=== PATIENT | male | born 1960 | race Caucasian/White ===

== ENCOUNTER 2017-09-10 07:03 | Emergency (ER) | payer BC ==
[2017-09-10] MEDS ORDERED: Ondansetron HCl/PF 4 MG/2 ML Vial ONE (07:14)
[2017-09-10] MEDS ORDERED: Promethazine HCl 25 MG/ML VIAL ONE (07:26)
[2017-09-10 07:33] LABS: #Lymphocytes 1.1 thou/uL (1.20-3.40); #Monocytes 0.3 thou/uL (0.11-0.59); %Basophils 0.4 % (0.0-1.0); %Eosinophils 0.1 % (0.0-10.0); %Lymphocytes 10.2 % (21.0-51.0); %Monocytes 2.9 % (0.0-10.0); Hematocrit 43.6 % (42.0-52.0); Mean Platelet Volume 6.9 fL (7.4-10.4); White Blood Cell (WBC) Count 10.4 thou/uL (4.8-10.8)
[2017-09-10] MEDS ORDERED: Ketorolac Tromethamine 30 MG/ML VIAL ONE (07:39)
[2017-09-10 07:46] LABS: ALT (SGPT) 35 U/L (8-55); AST (SGOT) 30 U/L (5-34); Alkaline Phosphatase 94 U/L (40-150); Anion Gap 16 mmol/L (10-20); BUN (Urea Nitrogen) 16 mg/dL (8.4-25.7); Bilirubin, Total 1.3 mg/dL (0.2-1.2); Calc. Creatinine Clearance 0 mL/min (70-130); Calcium 9.5 mg/dL (7.8-10.44); Carbon Dioxide 24 mmol/L (22-29); Chloride 103 mmol/L (98-107); Estimated GFR-MDRD 46; Globulin 3.2 g/dL (2.4-3.5); Lipase 14 U/L (8-78); Protein, Total 7.4 g/dL (6.0-8.3)
[2017-09-10 08:34] LABS: Bilirubin Negative (Negative); Blood, Urine Trace (Negative); Glucose, Urine (Dipstick) 100 mg/dL (Negative); Ketone, Urine Trace mg/dL (Negative); Nitrite Negative (Negative); Protein, Urine (Dipstick) Negative (Neg-Trace); Urobilinogen 0.2 mg/dL (0.2-1.0)
[2017-09-10 08:42] LABS: Bacteria/HPF None Seen HPF (None Seen); Squamous Epithelial None Seen HPF (0-3); WBC/HPF 0-3 HPF (0-3)
[2017-09-10] MEDS ORDERED: Iopamidol 200 41% 50 ML VIAL FS ONE (09:00)
[2017-09-10] MEDS ORDERED: metroNIDAZOLE 500 MG/100 ML BAG ONE (09:05)
--- NOTE | 2017-09-10 11:01 | CT ---
CT ABDOMEN AND PELVIS WITH IV CONTRAST: Date: 09/10/17 HISTORY: Abdominal pain, fever. FINDINGS: No comparison. The lung bases are clear. The right renal collecting system and ureter is slightly distended to the l evel of a 0.4 cm calculus within the distal right ureter. The left renal collecting system, ureter, a nd urinary bladder are decompressed. Two stones are present within nondilated calices of the left kid teresa, measuring up to 0.5 cm greatest diameter. At least six stones are present within calices of the right kidney. There is subtle stranding in the fat immediately adjacent to the right kidney. Low dens ity lesions within the liver and kidneys are favored to represent small cysts. Nonspecific lymph node s are scattered about the retroperitoneum. There are degenerative changes of the lumbar spine. No haven dence of bowel obstruction. IMPRESSION: Partial obstruction at a 4 mm distal right ureteral calculus. Additional nonobstructing bilateral harley al calculi. POS: [facility]
[2017-09-10] MEDS ORDERED: Morphine 4 MG/ML Carpuject ONE (11:18)
== END 2017-09-10 12:15 | disposition home or self-care (01) ==
LOC: SCSER 07:03
DX: E86.0 Dehydration (principal); N20.0 Calculus of kidney; E11.9 Type 2 diabetes mellitus without complications; E03.9 Hypothyroidism, unspecified; I10 Essential (primary) hypertension; Z79.899 Other long term (current) drug therapy
CPT/HCPCS: 74177; 80053; 81003; 81015; 83690; 85025; 96361; 96365; 96367; 96375; J1885; J2270; J2405; J2550

== ENCOUNTER 2017-09-13 12:57 | Outpatient (CLI) | payer BC ==
[2017-09-13 14:05] LABS: Hematocrit 43.5 % (42.0-52.0); Mean Platelet Volume 7.2 fL (7.4-10.4); Red Blood Cell (RBC) Count 4.66 mill/uL (4.70-6.10); White Blood Cell (WBC) Count 9.2 thou/uL (4.8-10.8)
[2017-09-13 14:14] LABS: PTT 37.6 SEC (22.9-36.1)
[2017-09-13 14:29] LABS: Bilirubin Negative (Negative); Blood, Urine Trace (Negative); Glucose, Urine (Dipstick) Negative (Negative); Ketone, Urine Trace mg/dL (Negative); Nitrite Negative (Negative); Protein, Urine (Dipstick) Negative (Neg-Trace); Urobilinogen 0.2 mg/dL (0.2-1.0)
[2017-09-13 14:31] LABS: Bacteria/HPF None Seen HPF (None Seen); Hyaline Casts/LPF 0-3 HYALINE CAST LPF (0-3 Hyaline); RBC/HPF 0-3 HPF (0-3); Squamous Epithelial None Seen HPF (0-3); WBC/HPF 0-3 HPF (0-3)
[2017-09-13 14:32] LABS: Anion Gap 10 mmol/L (10-20); BUN (Urea Nitrogen) 18 mg/dL (8.4-25.7); Calc. Creatinine Clearance 0 mL/min (70-130); Calcium 9.6 mg/dL (7.8-10.44); Carbon Dioxide 28 mmol/L (22-29); Chloride 102 mmol/L (98-107); Estimated GFR-MDRD 36
== END 2017-09-13 12:58 | disposition home or self-care (01) ==
LOC: LABBT 12:57
PROVIDERS: ATTEND Urology
DX: Z01.818 Encounter for other preprocedural examination (principal); N20.2 Calculus of kidney with calculus of ureter
CPT/HCPCS: 80048; 81001; 85027; 85610; 85730; 87086; 93005; 93010

== ENCOUNTER 2017-09-14 10:33 | Day surgery (SDC) | payer BC ==
[2017-09-13 13:17] VITALS: BMI 39.1
[2017-09-14] MEDS ORDERED: Fentanyl 250 MCG/5 ML VIAL ONE (12:12)
[2017-09-14] MEDS ORDERED: Midazolam HCl 2 mg/2 ml Vial ONE ×2 (12:12→12:19)
[2017-09-14] MEDS ORDERED: B & O ONE (12:21)
[2017-09-14] MEDS ORDERED: Iothalamate Meglumine 60% 50 ML VIAL FS ONE (12:21)
[2017-09-14] MEDS ORDERED: Levofloxacin 500 mg/D5W 100 ml Premix Bag ONE (12:28)
[2017-09-14] MEDS ORDERED: Ondansetron HCl/PF 4 MG/2 ML Vial ONE (14:56)
[2017-09-14] MEDS ORDERED: Glycopyrrolate 0.2 MG/ML 5 ML SYRINGE ONE (14:56)
[2017-09-14] MEDS ORDERED: Lidocaine 1% PF 5 ML VIAL ONE (14:56)
[2017-09-14] MEDS ORDERED: Propofol 200 MG/20 ML VIAL ONE (14:56)
[2017-09-14] MEDS ORDERED: ePHEDrine/0.9% NaCl/PF SYRINGE 50 mg/10 ml ONE (14:56)
[2017-09-14] MEDS ORDERED: PHENYLEPHRINE-NS 100 MCG/ML 10 ML SYRINGE ONE (14:56)
--- NOTE | 2017-09-14 17:36 | OP ---
DATE OF SURGERY: 09/14/2017 SURGEON: Russel Carr M.D. SERVICE: Urology. POSTOPERATIVE DIAGNOSES: Right ureteral and renal stone. POSTOPERATIVE DIAGNOSES: Right ureteral and renal stone. PROCEDURE PERFORMED: Right ureteroscopy, laser lithotripsy, basket extraction of stone, and placemen t of a 6 x 30 double-J stent. INDICATIONS FOR PROCEDURE: Mr. Redman is a 57-year-old white male with diabetes who initially presen major to me with right flank pain and a CT demonstrating a 4 mm distal right ureteral stone. Unfortuna tely, the patient's creatinine was mildly elevated, rechecked there was a significant worsening of hi s creatinine indicating that he was progressing towards renal failure. I recommended against medical expulsive therapy and going for immediate intervention. Urinalysis was negative for a urinary infec tion. He has had no fevers, we elected to proceed forward with the ureteroscopy with all risks and b enefits discussed and he agreed to proceed forward. DESCRIPTION OF PROCEDURE: After identification of arm band and verification of consent, the patient was brought back to the operating room where he underwent general anesthesia with LMA. He was then p laced in dorsal lithotomy position and prepped and draped in usual sterile fashion. After appropriat e timeout, a lubricated 22-Romanian rigid cystoscope was introduced per urethra into the bladder and at tention turned to the right orifice. Attempts to cannulate the ureteral orifice were unsuccessful du e to the stone being in close proximity. Therefore, the cystoscope was withdrawn and a semirigid ure teroscope brought in and directly intubated into the distal ureter. Using the ureteroscope as guidan ce, the sensor wire was able to navigate past the stone into the renal pelvis. The ureteroscope was then withdrawn to allow for affixing the sensor wire to the drapes of the safety wire. The ureterosc ope was then readvanced through the urethra back into the bladder and into ureter adjacent to the sen sor wire to the level of the stone. In attempts to pass a narrow segment of the ureter, a small muco petey flap was raised with the ureteroscope. The ureteroscope was withdrawn and positioned in the jayson ect position within the ureter and back approximately until the stone was seen. The 200 micron laser fiber was then used to fragment the stone into 2 pieces and the Zero Tip 1.9-Romanian nitinol basket u sed to grasp the fragments and bring it out for stone analysis. The ureteroscope was then put back i nto the urethra into the bladder underneath the ureter, passed mucosal flap and into the mid ureter. An Amplatz Super Stiff wire was then advanced through the ureteroscope to the level of the renal pel vis. The ureteroscope was then withdrawn and an 11/13 x 42 cm ureteral access sheath was advanced ov er the Super Stiff wire to the level of the proximal ureter. The inner cannula and the Super Stiff w suly were removed leaving the outer sheath and the sensor wire in place as a safety wire. A flexible digital ureteroscope was then passed up the ureteral access sheath into the proximal ureter and into the renal pelvis. There was a significant amount of debris and old blood within the renal pelvis whi ch was irrigated out with gentle irrigation using the ureteroscope. Some of the larger clots were re moved with the basket. Inspection of the lower pole where the stone had been seen on CT demonstrated a 3 mm stone which was somewhat embedded within the renal papilla. Using the basket and the tip of the laser, the stone was able to be manipulated just enough that the laser fiber could be used to hit the stone and which caused it to extrude out through the renal papillae in slope within the renal pe lvis. The 0 tip nitinol basket was then used to grasp the stone and bring it out for stone analysis. There were no other stones noted within the renal pelvis. The ureteroscope and sheath were then us ed to pull back for pull back ureteroscopy to look for ureteral stones within the ureter and nothing else was seen. Satisfied that the stones have been removed, everything was removed other than sensor wire which was used to backload the 22 Romanian rigid cystoscope back into the bladder. A 6 x 30 uret eral stent was then placed over the sensor wire up to the level of the renal pelvis. The wire was th en removed leaving a partial curl in the renal pelvis and good curl in the bladder. The bladder was then emptied and the cystoscope removed. The patient then awakened and taken to PACU for recovery in stable condition. COMPLICATION: Just a small mucosal flap which had been of no significant consequence. The patient h as been stented and will be stented for few weeks to account for this. ESTIMATED BLOOD LOSS: Minimal. RETAINED TUBES AND DRAINS: A 6 x 30 double-J stent on the right. SPECIMENS: Stone for stone analysis x2. DISPOSITION: Patient will be discharged home and follow up with me in approximately 2 weeks for cyst oscopy.
--- NOTE | 2017-09-14 18:41 | RAD ---
RETROGRADE URETEROGRAM INTRAOPERATIVE FLUOROSCOPY 09/14/17 HISTORY: Ureteral calculus. FINDINGS: Intraoperative fluoroscopy was provided for retrograde study as performed by Dr. Carr. Spot fluoro scopic image shows the upper half of a pigtail catheter overlying the course of the right ureter. Con trast material is apparent within the colon. FLUORO TIME: 21 seconds. POS: [facility]
[2017-09-18 18:11] LABS: CA Oxalate Monohydrate 92 % (.); Color Brown (.); Stone Weight 18.8 mg (.)
== END 2017-09-14 16:55 | disposition home or self-care (01) ==
LOC: SDC 10:33
PROVIDERS: ATTEND Urology
PROC: 0T768DZ Dilation of Right Ureter with Intraluminal Device, Via Natural or Artificial Opening Endoscopic (ICD-10-PCS; principal; 2017-09-14)
PROC: 0TF68ZZ Fragmentation in Right Ureter, Via Natural or Artificial Opening Endoscopic (ICD-10-PCS; principal; 2017-09-14)
DX: N20.2 Calculus of kidney with calculus of ureter (principal); M10.9 Gout, unspecified; E11.9 Type 2 diabetes mellitus without complications; E88.81 Metabolic syndrome and other insulin resistance; Z79.82 Long term (current) use of aspirin; Z79.84 Long term (current) use of oral hypoglycemic drugs; Z79.899 Other long term (current) drug therapy; Z88.1 Allergy status to other antibiotic agents; Z94.7 Corneal transplant status; Z86.19 Personal history of other infectious and parasitic diseases
CPT/HCPCS: 74420; 82365; 88300; C1758; C1769; J1956; J2001; J2250; J2405; J2704; J3010; Q9961

== ENCOUNTER 2017-11-23 14:10 | Outpatient (CLI) | payer BC | END 2017-11-23 14:11 | disposition home or self-care (01) | LOC: BICULT 14:10 | PROVIDERS: ATTEND Urology | DX: N20.2 Calculus of kidney with calculus of ureter (principal) | CPT/HCPCS: 76770 ==

== ENCOUNTER 2019-08-20 15:30 | Outpatient (CLI) | payer BC | END 2019-08-20 15:31 | disposition home or self-care (01) | LOC: DTY/OP 15:30 | PROVIDERS: ATTEND Family Medicine | DX: E11.22 Type 2 diabetes mellitus with diabetic chronic kidney disease (principal); N18.9 Chronic kidney disease, unspecified | CPT/HCPCS: 97802 ==